=== PATIENT | female | born 1975 | race American Indian/Alaskan Native ===

== ENCOUNTER 2018-10-29 19:12 | Emergency (ER) | payer OTHER ==
[2018-10-29] MEDS ORDERED: IBUPROFEN PO ONE ×2 (19:39→21:57)
[2018-10-29] MEDS ORDERED: IBUPROFEN ONE (19:40)
--- NOTE | 2018-10-29 20:32 | XRay Report ---
FINAL REPORT EXAM: XR SPINE LUMBOSACRAL 2-3V HISTORY: Backpain after Fall COMPARISON: None available. FINDINGS: Three views of the lumbar spine obtained. Lumbar vertebral body heights preserved. Mild loss of disc height L5-S1 level and L4-L5 level. Mild loss of disc height T12-L1 level with mild endplate osteophy te at several levels. Remaining disc heights are preserved. Pedicles are intact. No spondylolisthesis . IMPRESSION: Lumbar vertebral body heights are preserved. Mild degenerative changes.
--- NOTE | 2018-10-29 20:33 | XRay Report ---
FINAL REPORT EXAM: XR KNEE 3V RT HISTORY: Right knee pain after fall COMPARISON: None available. FINDINGS: Four total images of right knee obtained. Bony structures are intact. Joint spaces are preserved. No acute fracture dislocation. IMPRESSION: No acute bony abnormality.
--- NOTE | 2018-10-29 20:37 | Emergency Department Report ---
ED Fall HPI - General Chief Complaint: Fall Stated Complaint: FALL/BACK/KNEE PAIN Time Seen by Provider: 10/29/18 22:10 Source: patient, family, EMS Mode of arrival: Wheelchair - History of Present Illness Initial Comments: This is 43-year-old female here report that she was walking in in the [employer] store and she slipped and fell landed on both knees and then her friend, to cat ch her fall she ended up in a splinted position. She said that her left hand pain is that of the tendon heard serve right knee is 10 out of 10 and lower back is 10/10. Patient said is achy. Last menstrual period was 10/28/2018 and she is currently under.. She denies any numbness or to go into extremities or any loss of bowel or bladder function. Denies any head injury or nausea or vomiting. Denies any neck pain or stiffness. No medication taken prior to coming to the emergency room. Pain is worse with ambulated and movement and better with rest. MD Complaint: fall -: This evening Fall From: standing When Fall Occurred: just prior to arrival Fall Witnessed: yes, by bystander Place Fall Occurred: other ([employer] grocery store) Loss of Consciousness: none Prolonged Down Time?: no Symptoms Prior to Fall: none Location: back Location - Extremities: Left: Hand (pain), Right: Knee (pain) Severity: severe Severity scale (0 -10): 10 Quality: aching Context: tripped/slipped Associated Symptoms: denies: headache, neck pain, numbness, weakness, chest paint, shortness of breath, abdominal pain, hematuria, unable to walk, lightheaded, vertigo, confusion - Related Data Previous Rx's Medication Instructions Recorded Last Taken Type Cyclobenzaprine [Flexeril 10mg] 10 mg PO Q12H PRN #14 tablet 10/29/18 Unknown Rx traMADol [Ultram 50 MG tab] 50 mg PO Q6HR PRN #12 tablet 10/29/18 Unknown Rx Allergies Allergy/AdvReac Type Severity Reaction Status Date / Time No Known Allergies Allergy Unverified 10/29/18 19:20 ED Review of Systems ROS: Stated complaint: FALL/BACK/KNEE PAIN Other details as noted in HPI Constitutional: denies: chills, fever Respiratory: denies: cough, shortness of breath, wheezing Cardiovascular: denies: chest pain, palpitations, edema, syncope Gastrointestinal: denies: abdominal pain, nausea, vomiting Genitourinary: denies: hematuria Musculoskeletal: back pain, arthralgia. denies: joint swelling, myalgia Skin: denies: rash Neurological: denies: headache, numbness, paresthesias, confusion, abnormal gait, vertigo ED Past Medical Hx - Past Medical History Previous Medical History?: Yes - Surgical History Past Surgical History?: Yes Additional Surgical History: Left Knee surgery, C section x 2 - Family History Family history: no significant - Social History Smoking Status: Never Smoker Substance Use Type: None - Medications Home Medications: Home Medications Medication Instructions Recorded Confirmed Last Taken Type Cyclobenzaprine [Flexeril 10mg] 10 mg PO Q12H PRN #14 tablet 10/29/18 Unknown Rx traMADol [Ultram 50 MG tab] 50 mg PO Q6HR PRN #12 tablet 10/29/18 Unknown Rx ED Physical Exam - General Limitations: No Limitations General appearance: alert, in no apparent distress - Head Head exam: Present: atraumatic, normocephalic, normal inspection, other (normal exam) - Eye Eye exam: Present: normal appearance, PERRL, EOMI Pupils: Present: normal accommodation - ENT ENT exam: Present: normal exam, normal orophraynx - Neck Neck exam: Present: normal inspection, full ROM, other (no C-spine tenderness). Absent: tenderness, lymphadenopathy - Respiratory Respiratory exam: Present: normal lung sounds bilaterally. Absent: respiratory distress, chest wall tenderness - Cardiovascular Cardiovascular Exam: Present: regular rate, normal rhythm, normal heart sounds - GI/Abdominal GI/Abdominal exam: Present: soft, normal bowel sounds. Absent: distended, guarding, rigid - Extremities Exam Extremities exam: Present: normal inspection, full ROM (reports pain or range of motion worse with extension of her right knee and range of motion to left hand), tenderness (right knee tenderness, anteriorly), normal capillary refill, other (No cce. + 2 pulses in all extremities, no neurovascular compromise). Absent: pedal edema, joint swelling, calf tenderness - Expanded Upper Extremity Exam Left General: Present: normal inspection. Absent: laceration, abrasion, nail injury (#), foreign body, amputation, avulsion Shoulder Exam: Present: normal inspection, full ROM. Absent: tenderness, swelling, abrasion, laceration, ecchymosis, deformity, crepidus, dislocation, erythema, tenderness over AC joint Upper Arm exam: Present: normal inspection, full ROM. Absent: tenderness, swelling, abrasion, laceration, ecchymosis, deformity, crepidus, dislocation, erythema Elbow exam: Present: normal inspection, full ROM. Absent: tenderness, swelling, abrasion, laceration, ecchymosis, deformity, crepidus, dislocation, erythema, effusion, pain w/ pronation/supination, tenderness over radial head Forearm Wrist exam: Present: normal inspection, full ROM. Absent: tenderness, swelling, abrasion, laceration, ecchymosis, deformity, crepidus, dislocation, erythema, tenderness over anatomical snuff box, pain with axial thumb loading Hand Wrist exam: Present: normal inspection, full ROM (minimal pain with flexion of risks.), other (no snuffbox tenderness.). Absent: tenderness, swelling, abrasion, laceration, dislocation, erythema, amputation, nail avulsion, subungual hematoma Neuro motor exam: Present: wrist extension intact, thumb opposition intact, thumb IP flexion intact, thumb adduction intact, fingers 2-5 abduction intact Neurosensory exam: Present: radial nerve intact, ulnar nerve intact, median nerve intact Vascular: Present: normal capillary refill, radial pulse, brachial pulse, ulnar pulse. Absent: vascular compromise, Pallo - Expanded Lower Extremity Exam Right Hip exam: Present: normal inspection, full ROM. Absent: tenderness, swelling, abrasion, laceration, ecchymosis, deformity, crepidus, dislocation, erythema, external rotation, internal rotation, shortening, pelvic stability Upper Leg exam: Present: normal inspection, full ROM. Absent: tenderness, swelling, abrasion, laceration, ecchymosis, deformity, crepidus, dislocation, erythema Knee exam: Present: normal inspection, full ROM (pain with flexion and extension but reports more pain with extension of right knee), tenderness (right knee anterior), full knee extension. Absent: swelling, abrasion, laceration, ecchymosis, deformity, crepidus, dislocation, erythema, effusion, pain w/ pronation/supination, posterior draw sign, pain/laxity with valgus, pain/laxity with varus Lower Leg exam: Present: normal inspection, full ROM. Absent: tenderness, swelling, abrasion, laceration, ecchymosis, deformity, crepidus, dislocation, erythema, palpable cord, Rishi's sign Ankle exam: Present: normal inspection, full ROM. Absent: tenderness, swelling, abrasion, laceration, ecchymosis, deformity, crepidus, dislocation, erythema Foot/Toe exam: Present: normal inspection, full ROM. Absent: tenderness, swelling, abrasion, laceration, ecchymosis, deformity, crepidus, dislocation, erythema, amputation, puncture wound, foreign body, calcaneal tenderness, tenderness at base of 5th metatarsal, nail avulsion, subungual hematoma Neuro vascular tendon exam: Present: no vascular compromise. Absent: pulse deficit, abnormal cap refill, motor deficit, sensory deficit, tendon deficit, extremity cold to touch, pallor, abnormal 2-point discrimination, decreased fine/light touch, foot drop, peroneal nerve deficit, significant pain with passive ROM of distal joint Gait: Positive: observed and limited by pain - Back Exam Back exam: Present: normal inspection, full ROM, tenderness, paraspinal tenderness (bilateral lower back lumbar), other (ambulates with minimal limp.). Absent: CVA tenderness (R), CVA tenderness (L), muscle spasm, vertebral tenderness, rash noted - Expanded Back Exam Expanded Back exam: Negative Straight Leg Raising: Left, Right - Neurological Exam Neurological exam: Present: alert, oriented X3, normal gait, reflexes normal, other (no focal deficits). Absent: motor sensory deficit - Psychiatric Psychiatric exam: Present: normal affect, normal mood - Skin Skin exam: Present: warm, dry, intact, normal color. Absent: rash ED Course Vital Signs 10/29/18 10/29/18 10/29/18 19:22 19:59 22:10 Temperature 98.7 F Pulse Rate 80 Respiratory 20 20 20 Rate Blood Pressure 132/87 Blood Pressure [Left] O2 Sat by Pulse 99 Oximetry 10/29/18 23:03 Temperature Pulse Rate 66 Respiratory 20 Rate Blood Pressure Blood Pressure 143/75 [Left] O2 Sat by Pulse 99 Oximetry - Reevaluation(s) Reevaluation #1: 10/29/18 22:44 Patient given Motrin 800 mg in triage area and in the emergency room and she was given Chunchula 5/325 and Flexeril 10 mg by mouth. Her pain is better and she is able to ambulate. She has no complaints at present. - Orthopedic Splinting/Casting Injury #1 Side: right Lower Extremity Injury Location: knee Lower Extremity Immobilizer: Vern wrap ED Medical Decision Making - Radiology Data Radiology results: report reviewed X-ray of lumbar sacral spine 2-3 views and x-ray of right knee 3 views dictated by radiologist and report reviewed by myself. And no acute abnormalities noted. Please see reports below. Findings [address] [address] XRay Report Signed Patient: TRENTON LORA MR#: [id number] : 1975 Acct:[id number] Age/Sex: 43 / F ADM Date: 10/29/18 Loc: ED Attending Dr: Ordering Physician: ELINA BECKETT Date of Service: 10/29/18 Procedure(s): XR spine lumbosacral 2-3V Accession Number(s): [id number] cc: ELINA BECKETT Fluoro Time In Minutes: FINAL REPORT EXAM: XR SPINE LUMBOSACRAL 2-3V HISTORY: Backpain after Fall COMPARISON: None available. FINDINGS: Three views of the lumbar spine obtained. Lumbar vertebral body heights preserved. Mild loss of disc height L5-S1 level and L4-L5 level. Mild loss of disc height T12-L1 level with mild endplate osteophyte at several levels. Remaining disc heights are preserved. Pedicles are intact. No spondylolisthesis. IMPRESSION: Lumbar vertebral body heights are preserved. Mild degenerative changes. Transcribed By: LMA Dictated By: VICENTE JONES MD Electronically Authenticated By: VICENTE JONES MD Signed Date/Time: 10/29/182031 DD/ 30 TD/TT: 10/29/1820[address] Findings [address] [address] XRay Report Signed Patient: TRENTON LORA MR#: [id number] : 1975 Acct:[id number] Age/Sex: 43 / F ADM Date: 10/29/18 Loc: ED Attending Dr: Ordering Physician: ELINA BECKETT Date of Service: 10/29/18 Procedure(s): XR knee 3V RT Accession Number(s): [id number] cc: ELINA BECKETT Fluoro Time In Minutes: FINAL REPORT EXAM: XR KNEE 3V RT HISTORY: Right knee pain after fall COMPARISON: None available. FINDINGS: Four total images of right knee obtained. Bony structures are intact. Joint spaces are preserved. No acute fracture dislocation. IMPRESSION: No acute bony abnormality. Transcribed By: LMA Dictated By: VICENTE JONES MD Electronically Authenticated By: VICENTE JONES MD Signed Date/Time: 10/29/182032 DD/ 31 TD/TT: 10/29/182031 - Medical Decision Making This is a 43 old female here report that she slipped and fell and the grocery store and she is having lower back pain left and pain in right knee pain. Patient physical exam shows bilateral lumbar paraspinal tenderness without any vertebral tenderness. She is able to ambulate with minimal pain. She has right knee, anterior tenderness without any deformity and left hand exam is normal except she says she has pain with flexion and extension. Patient had lumbar sacral x-ray and right knee x-ray which shows no acute abnormalities. This was dictated by radiologist and reported reviewed by myself. Please refer to procedure note for Vern wrap application. She was given Motrin and Chunchula for pain and Flexeril for strain and her pain is better. Vital signs stable she is afebrile and patient discharged home in stable condition with prescription for Ultram and Flexeril and to follow up with orthopedic doctor in 2-3 days if she is not better. - Differential Diagnosis fracture, subluxation, dislocation, sprain, strain, MSK pain Critical care attestation.: If time is entered above; I have spent that time in minutes in the direct care of this critically ill patient, excluding procedure time. ED Disposition Clinical Impression: Arthralgia of multiple sites Pain in lower back Qualifiers: Chronicity: acute Back pain laterality: bilateral Sciatica presence: without sciatica Qualified Code(s): M54.5 - Low back pain Accidental fall Qualifiers: Encounter type: initial encounter Qualified Code(s): W19.XXXA - Unspecified fall, initial encounter Right knee sprain Qualifiers: Encounter type: initial encounter Involved ligament of knee: unspecified ligament Qualified Code(s): S83.91XA - Sprain of unspecified site of right knee, initial encounter Disposition: TO HOME OR SELFCARE Is pt being admited?: No Does the pt Need Aspirin: No Condition: Stable Instructions: Knee Sprain (ED), Acute Low Back Pain (ED), Arthralgia (ED), Knee Exercises (GEN), RICE Therapy (ED) Additional Instructions: Please follow up with primary care and also orthopedic doctor as referred Take Ultram for pain and Flexeril for muscle strain and spasm. Please do not drive or operate heavy machinery while taking Flexeril or Ultram as these medication causes drowsiness If his symptoms worsen please return to the emergency room otherwise follow-up with orthopedic and primary care Please follow discharge instruction in Rice therapy Prescriptions: Cyclobenzaprine [Flexeril 10mg] 10 mg PO Q12H PRN #14 tablet PRN Reason: Spasms traMADol [Ultram 50 MG tab] 50 mg PO Q6HR PRN #12 tablet PRN Reason: Pain Referrals: FANNIE GUARDADO MD [Staff Physician] - 2-3 Days DIONY PRADHAN MD [Primary Care Provider] - 2-3 Days [facility] [Outside] - 2-3 Days Forms: Accompanied Note, Work/School Release Form(ED)
[2018-10-29] MEDS ORDERED: NORCO 5/325 PO ONE (21:57)
[2018-10-29] MEDS ORDERED: FLEXERIL PO ONE (21:57)
[2018-10-30 14:36] VITALS: BP 143/75
== END 2018-10-29 23:04 | disposition home or self-care (01) ==
LOC: ED 19:12
DX: S83.91XA Sprain of unspecified site of right knee, initial encounter (principal); M54.5 Low back pain; W01.0XXA Fall on same level from slipping, tripping and stumbling without subsequent striking against object, initial encounter; Y93.01 Activity, walking, marching and hiking; Y92.512 Supermarket, store or market as the place of occurrence of the external cause; Y99.8 Other external cause status
CPT/HCPCS: 72100

== ENCOUNTER 2020-07-18 20:49 | Emergency (ER) | payer MEDICAID, OTHER ==
[2020-07-18 21:50] VITALS: BP 144/67
--- NOTE | 2020-07-18 23:11 | XRay Report ---
LEFT KNEE 3 VIEWS INDICATION / CLINICAL INFORMATION: "Left knee aggravated since Wednesday" COMPARISON: None available. FINDINGS: BONES / JOINT(S): No acute fracture or subluxation. No significant arthritis. SOFT TISSUES: There is an effusion in the suprapatella bursa. ADDITIONAL FINDINGS: None. Signer Name: Doni Avila MD Signed: 07/18/2020 11:06 PM Workstation Name: [id number]
[2020-07-19] MEDS ORDERED: IBUPROFEN 800 MG TAB PO ONE (00:01)
[2020-07-19] MEDS ORDERED: predniSONE 20 MG TAB PO ONE (00:01)
--- NOTE | 2020-07-19 00:32 | Emergency Department Report ---
ED Lower Extremity HPI - General Chief Complaint: Extremity Injury, Lower Stated Complaint: LEFT KNEE SWOLLEN Time Seen by Provider: 07/18/20 23:36 Source: patient Mode of arrival: Ambulatory Limitations: No Limitations - History of Present Illness Initial Comments: Patient is a 44-year-old female with history of arthralgia who presents for left anterior knee pain x5 days. 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 Patient states same knee as previous knee aching and pain, pain is described at 5/10 aching exacerbated by problem performing work duties and prolonged standing and walking. Pain is relieved by offloading and rest. Patient remains ambulatory to baseline per patient however ambulation does exacerbate the pain. Patient denies new fall injury or trauma. MD Complaint: knee injury - Related Data Previous Rx's Medication Instructions Recorded Last Taken Type Cyclobenzaprine [Flexeril 10mg] 10 mg PO Q12H PRN #14 tablet 10/29/18 Unknown Rx traMADoL [Ultram 50 MG tab] 50 mg PO Q6HR PRN #12 tablet 10/29/18 Unknown Rx Menthol/Camphor [Chama Stow 1 applicatio TP QID PRN #1 tube 07/19/20 Unknown Rx Ointment] Naproxen 500 mg PO BID PRN #30 tablet 07/19/20 Unknown Rx predniSONE [Deltasone] 40 mg PO QDAY 5 Days #15 tab 07/19/20 Unknown Rx Allergies Allergy/AdvReac Type Severity Reaction Status Date / Time No Known Allergies Allergy Unverified 10/29/18 19:20 ED Review of Systems ROS: Stated complaint: LEFT KNEE SWOLLEN Other details as noted in HPI Constitutional: denies: chills, fever Eyes: denies: eye pain, eye discharge, vision change ENT: denies: ear pain, throat pain Respiratory: denies: cough, shortness of breath, wheezing Cardiovascular: denies: chest pain, palpitations Endocrine: no symptoms reported Gastrointestinal: denies: abdominal pain, nausea, diarrhea Genitourinary: denies: urgency, dysuria, discharge Musculoskeletal: joint swelling (left knee ), arthralgia. denies: back pain Skin: denies: rash, lesions Neurological: denies: headache, weakness, paresthesias Psychiatric: denies: anxiety, depression Hematological/Lymphatic: denies: easy bleeding, easy bruising ED Past Medical Hx - Past Medical History Previous Medical History?: Yes Additional medical history: Left Knee - Surgical History Past Surgical History?: Yes Additional Surgical History: Left Knee surgery, C section x 2 - Social History Smoking Status: Never Smoker Substance Use Type: None - Medications Home Medications: Home Medications Medication Instructions Recorded Confirmed Last Taken Type Cyclobenzaprine [Flexeril 10mg] 10 mg PO Q12H PRN #14 tablet 10/29/18 Unknown Rx traMADoL [Ultram 50 MG tab] 50 mg PO Q6HR PRN #12 tablet 10/29/18 Unknown Rx Menthol/Camphor [Chama Stow 1 applicatio TP QID PRN #1 tube 07/19/20 Unknown Rx Ointment] Naproxen 500 mg PO BID PRN #30 tablet 07/19/20 Unknown Rx predniSONE [Deltasone] 40 mg PO QDAY 5 Days #15 tab 07/19/20 Unknown Rx ED Physical Exam - General Limitations: No Limitations General appearance: alert, in no apparent distress - Head Head exam: Present: atraumatic, normocephalic - Eye Eye exam: Present: normal appearance - ENT ENT exam: Present: mucous membranes moist - Neck Neck exam: Present: normal inspection, full ROM. Absent: tenderness - Respiratory Respiratory exam: Present: normal lung sounds bilaterally. Absent: respiratory distress, wheezes, stridor - Cardiovascular Cardiovascular Exam: Present: regular rate, normal rhythm, normal heart sounds. Absent: systolic murmur, diastolic murmur, rubs, gallop - GI/Abdominal GI/Abdominal exam: Present: soft, normal bowel sounds. Absent: distended, tenderness - Rectal Rectal exam: Present: deferred - Extremities Exam Extremities exam: Present: normal inspection, full ROM, tenderness (left knee ), joint swelling - Expanded Lower Extremity Exam Left Knee exam: Present: full ROM, tenderness, swelling, effusion, pain w/ pronation/supination, full knee extension. Absent: abrasion, laceration, ecchymosis, deformity, crepidus, dislocation, erythema, posterior draw sign Lower Leg exam: Present: full ROM. Absent: tenderness, swelling Ankle exam: Present: full ROM. Absent: tenderness, swelling Foot/Toe exam: Present: full ROM. Absent: tenderness, swelling Neuro vascular tendon exam: Absent: pulse deficit, motor deficit, sensory deficit, tendon deficit Gait: Positive: observed and limited by pain - Back Exam Back exam: Present: normal inspection, full ROM. Absent: tenderness, vertebral tenderness - Neurological Exam Neurological exam: Present: alert, oriented X3, CN II-XII intact, reflexes normal - Expanded Neurological Exam Expanded Patient oriented to: Present: person, place, time Motor strength exam: RUE: 5, LUE: 5, RLE: 5, LLE: 5 DTR: knee (R): 2+, knee (L): 2+ Best Eye Response (Asuncion): (4) open spontaneously Best Motor Response (Concrete): (6) obeys commands Best Verbal Response (Concrete): (5) oriented Concrete Total: 15 - Psychiatric Psychiatric exam: Present: normal affect, normal mood - Skin Skin exam: Present: warm, dry, intact, normal color. Absent: rash ED Course Vital Signs 07/18/20 21:48 Temperature 98.3 F Pulse Rate 76 Respiratory 18 Rate Blood Pressure 144/67 O2 Sat by Pulse 98 Oximetry ED Lower Extremity MDM - Radiology Data Radiology results: report reviewed, image reviewed Findings Reporting MD: Doni Avila Dictation Time: July 18, 2020 22:06 Planning Coordinator: Not available Record Changer Date: LEFT KNEE 3 VIEWS INDICATION / CLINICAL INFORMATION: "Left knee aggravated since Wednesday" COMPARISON: None available. FINDINGS: BONES / JOINT(S): No acute fracture or subluxation. No significant arthritis. SOFT TISSUES: There is an effusion in the suprapatella bursa. ADDITIONAL FINDINGS: None. Signer Name: Doni Avila MD Signed: 07/18/2020 10:06 PM Workstation Name: [id number] - Medical Decision Making X-rays no fracture no soft tissue abnormality however noted small pleural effusion , patient is ambulatory with cane to her baseline. Plan short burst steroids NSAIDs analgesic balm Vern wrap rice therapy follow-up with Ortho in 2 to 3 days. Patient verbalized agreement and understanding of discharge plan. Patient DC'd home in stable condition at this time. Critical care attestation.: If time is entered above; I have spent that time in minutes in the direct care of this critically ill patient, excluding procedure time. ED Disposition Clinical Impression: Knee effusion, left Disposition: DC-01 TO HOME OR SELFCARE Is pt being admited?: No Does the pt Need Aspirin: No Condition: Stable Instructions: Osteoarthritis (ED), Knee Effusion (ED) Prescriptions: predniSONE [Deltasone] 40 mg PO QDAY 5 Days #15 tab Naproxen 500 mg PO BID PRN #30 tablet PRN Reason: pain Menthol/Camphor [Chama Stow Ointment] 1 applicatio TP QID PRN #1 tube PRN Reason: pain Referrals: FANNIE GUARDADO MD [Staff Physician] - 3-5 Days Forms: Work/School Release Form(ED)
== END 2020-07-19 00:45 | disposition home or self-care (01) ==
LOC: ED 20:49
DX: M25.462 Effusion, left knee (principal); Z98.890 Other specified postprocedural states; Z79.899 Other long term (current) drug therapy
CPT/HCPCS: 73562; 99284; J7512